=== PATIENT | female | born 1940 | race Caucasian/White ===

== ENCOUNTER 2021-06-04 13:36 | Emergency (ER) | payer MEDICARE, OTHER ==
[2021-06-04 13:52] VITALS: BP 132/77; PULSE 94; RESP 20; TEMP 98.1
--- NOTE | 2021-06-04 17:59 | ED ---
General Adult HPI - General Chief complaint: Eye Problems Stated complaint: Loss of Vision in Rt Eye Time Seen by Provider: 06/04/21 14:34 Source: patient Mode of arrival: ambulatory Limitations: no limitations - History of Present Illness Initial comments: 81-year-old female presents to the emergency room for a chief complaint of loss of vision in the right eye. Patient states 3 days ago she had injections for macular degeneration. The day after she started to get some light sensitivity and pain. Last night she lost her vision. States it looks like water in her eye. She cannot see anything else. Denies fevers. Denies weakness of arms or legs.Patient has no other complaints at this time including shortness of breath, chest pain, abdominal pain, nausea or vomiting, headache, or visual changes. - Related Data Allergies Allergy/AdvReac Type Severity Reaction Status Date / Time No Known Allergies Allergy Verified 06/04/21 13:52 Review of Systems ROS Statement: Those systems with pertinent positive or pertinent negative responses have been documented in the HPI. ROS Other: All systems not noted in ROS Statement are negative. Past Medical History Additional Past Medical History / Comment(s): macular degeneration to juan francisco eye History of Any Multi-Drug Resistant Organisms: None Reported Past Surgical History: Orthopedic Surgery Additional Past Surgical History / Comment(s): lt shoulder and lt wrist Past Psychological History: No Psychological Hx Reported Smoking Status: Never smoker Past Alcohol Use History: Occasional Past Drug Use History: None Reported General Exam Limitations: no limitations General appearance: alert, in no apparent distress Head exam: Present: atraumatic Eye exam: Present: EOMI, conjunctival injection (Right conjunctival injection). Absent: PERRL (Nonreactive right pupil left pupil reactive), scleral icterus, periorbital swelling, periorbital tenderness Expanded Eyelids: Normal Inspection: Bilateral Sclera/Conjunctival: Injection: Right Visual acuity (R) = 20/: 70 Visual acuity (L) = 20/: 200 IOP (R) in mmH IOP (L) in mmH IOP measured with: Tonopen Course Vital Signs 06/04/21 13:48 Temperature 98.1 F Pulse Rate 94 Respiratory 20 Rate Blood Pressure 132/77 O2 Sat by Pulse 96 Oximetry Medical Decision Making - Medical Decision Making Patient has a nonreactive pupil with a hypopion noted on the right eye. Visual acuity is 20/200. She cannot see how many fingers I'm holding up. conjunctival injection noted. I did discuss this case with patient's printed circuit boards plasma etcher from [place] who stated he did intravitreal injections for macular degeneration 4 days ago. States that she will need injections of antibiotics into the eye. I did discuss this case with Dr. Martin who recommended transfer. I then discussed the case with printed circuit boards plasma etcher at [facility] who does accepts the transfer. I discussed the case with Dr. Renee in their ER who also agrees and transfer. Disposition Clinical Impression: Endophthalmitis, Hypopyon of right eye Disposition: OTHER INSTITUTION NOT DEFINED Referrals: None,Stated [Primary Care Provider] - 1-2 days Time of Disposition: 17:58 - Out of Hospital Transfer - Req. Specs Out of Hospital Transfer - Requested Specifics: Other Emergency Center ([facility])
== END 2021-06-04 18:54 | disposition other institution (70) ==
LOC: EC 13:36
DX: H44.001 Unspecified purulent endophthalmitis, right eye (principal); H20.051 Hypopyon, right eye
CPT/HCPCS: 99283